=== PATIENT | female | born 1965 | race African-American/Black ===

== ENCOUNTER → 2017-03-15 08:57 | Outpatient (CLI) | payer BC ==
[2016-03-21 06:24] VITALS: BMI 30.1
== END | disposition home or self-care (01) ==
LOC: D.CT 08:57
DX: R10.33 Periumbilical pain (principal)

== ENCOUNTER → 2017-03-16 14:42 | Outpatient (CLI) | payer BC ==
[2016-03-21 06:24] VITALS: BMI 30.1
== END | disposition home or self-care (01) ==
LOC: D.LABREF 14:42
DX: N28.89 Other specified disorders of kidney and ureter (principal)

== ENCOUNTER → 2017-03-16 14:45 | Outpatient (CLI) | payer BC ==
[2016-03-21 06:24] VITALS: BMI 30.1
[2017-03-16 15:06] LABS: BASOPHILS 0.4 % (0-2); EOSINOPHILS 1.6 % (0-7); HEMATOCRIT 42.1 % (36.0-48.0); IMMATURE GRANULOCYTES 0.1 % (0-5); LYMPHOCYTES 32.7 % (15-50); MCHC 33.3 g/dL (31.0-37.0); MCV 93.1 fL (80.0-100.0); MEAN PLATELET VOLUME 9.5 fL (7.4-10.4); MONOCYTES 6.1 % (2-11); NEUTROPHILS 59.1 % (40-80); PLATELET COUNT 318 10x3/uL (130-400); RBC 4.52 10x6/uL (4.00-5.40); RDW 12.1 % (11.5-14.5); WBC 6.7 10x3/uL (4.8-10.8)
[2017-03-16 15:14] LABS: INR 0.98 (0.85-1.17); PROTIME 12.8 SECONDS (11.6-15.0)
[2017-03-16 15:20] LABS: ALBUMIN 4.2 g/dL (3.4-5.0); ANION GAP 13.1 mmol/L (8-16); BILIRUBIN - TOTAL 0.43 mg/dL (0.2-1.3); CALCIUM 8.9 mg/dL (8.5-10.1); CARBON DIOXIDE 28.7 mmol/L (21.0-32.0); POTASSIUM - SERUM 3.8 mmol/L (3.5-5.1); PROTEIN - SERUM 7.9 g/dL (6.4-8.2)
== END | disposition home or self-care (01) ==
LOC: D.LAB 14:45
PROVIDERS: Urology
DX: N28.89 Other specified disorders of kidney and ureter (principal)

== ENCOUNTER → 2017-03-19 11:08 | Outpatient (CLI) | payer BC ==
[2016-03-21 06:24] VITALS: BMI 30.1
== END | disposition home or self-care (01) ==
LOC: D.LABREF 11:08
DX: R31.9 Hematuria, unspecified (principal); N28.89 Other specified disorders of kidney and ureter